=== PATIENT | male | born 1965 | race Caucasian/White ===

== ENCOUNTER 2017-12-20 | Emergency (ER) | payer OTHER | END 2017-12-20 18:02 | disposition home or self-care (01) ==

== ENCOUNTER 2018-02-24 15:08 | Day surgery (SDC) | payer OTHER ==
[2018-02-24] MEDS ORDERED: EPINEPHrine 1 MG/ML INJ ONE (15:17)
[2018-02-24] MEDS ORDERED: LIDO/EPI 2% **for epidural** 20 ML SDV ONE (15:17)
[2018-02-24] MEDS ORDERED: BUPIVACAINE 0.25% 30 ML SDV ONE (15:17)
[2018-02-24] MEDS ORDERED: CHLORHEXIDINE GLUCONATE 15 ML UDL ONE (15:17)
[2018-02-24] MEDS ORDERED: ceFAZolin 2 GM/DEXTROSE 100 ML IV ONE (15:19)
[2018-02-24] MEDS ORDERED: DEXAMETHASONE 4 MG/ML VIAL IVP ONE (15:19)
[2018-02-24] MEDS ORDERED: LR 1,000 ML IV ONE (15:20)
[2018-02-24] MEDS ORDERED: MIDAZOLAM 2 MG/2 ML VIAL IVP ONE (16:13)
--- NOTE | 2018-02-24 16:17 | PDANEPAE ---
ANE Past Medical History - Cardiovascular History Hx Hypertension: No Hx Arrhythmias: No Hx Chest Pain: No Hx Coronary Artery / Peripheral Vascular Disease: No Hx CHF / Valvular Disease: No Hx Palpitations: No - Pulmonary History Hx COPD: No Hx Asthma/Reactive Airway Disease: No Hx Recent Upper Respiratory Infection: No Hx Oxygen in Use at Home: No Hx Sleep Apnea: No Sleep Apnea Screening Result - Last Documented: Negative - Neurologic History Hx Cerebrovascular Accident: No Hx Seizures: No Hx Dementia: No - Endocrine History Hx Diabetes: No Obesity: no - Renal History Hx Renal Disorders: No - Liver History Hx Hepatic Disorders: No - Neurological & Psychiatric Hx Hx Neurological and Psychiatric Disorders: No - Cancer History Hx Cancer: No - Congenital Disorder History Hx Congenital Disorders: No - GI History GERD: no Hx Gastrointestinal Disorders: No - Other Health History Other Health History: scleritis. rosacea. left foot cellulitis - Chronic Pain History Chronic Pain: No - Surgical History Prior Surgeries: dental surgery. colonoscopy ANE Review of Systems Review of Systems: - Exercise capacity METS (RN): 4 METS ANE Patient History - Allergies Allergies/Adverse Reactions: gluten Allergy (Verified 02/16/18 11:29) GI Symptoms, keeps slceritis from flairing when without vancomycin Allergy (Verified 02/16/18 11:28) Red Man Syndrome - Home Medications Home medications: home medication list seen and reviewed Home Medications: Fish Oil 1000 mg (*) 12/20/17 [Last Taken 02/17/18] Multivitamin (*) 12/20/17 [Last Taken 02/17/18] - NPO status NPO Status: no food or drink >8 hours NPO Since - Liquids (Date): 02/24/18 NPO Since - Liquids (Time): 13:30 NPO Since - Solids (Date): 02/24/18 NPO Since - Solids (Time): 07:30 - Anes Hx Anes Hx: no prior problems - Smoking Hx Smoking Status: Former smoker - Family Anes Hx Family Hx Anesthesia Complications: none ANE Labs/Vital Signs - Vital Signs Blood Pressure: 148/104 Heart Rate: 69 Respiratory Rate: 18 O2 Sat (%): 96 Height: 177.8 cm Weight: 83.915 kg ANE Physical Exam - Airway Neck exam: FROM Mallampati Score: Class 1 Mouth exam: normal dental/mouth exam - Pulmonary Pulmonary: no respiratory distress, no rales or rhonchi, clear to auscultation - Cardiovascular Cardiovascular: regular rate and rhythym, no murmur, rub, or gallop - ASA Status ASA Status: I ANE Anesthesia Plan Anesthesia Plan: general endotracheal anesthesia
--- NOTE | 2018-02-24 16:25 | PDHPUP ---
History & Physical Update H&P update statement: This history and physical update is based on an assessment of the patient which was completed after admission or registration (within 24 hours), but prior to the surgery/procedure. H&P update: H&P reviewed & patient examined, no change in patient's condition since H&P completed
[2018-02-24] MEDS ORDERED: ONDANSETRON 4 MG/2 ML VIAL IVP PRN (16:32)
[2018-02-24] MEDS ORDERED: NALOXONE HCL 0.4 MG/ML INJ IVP PRN (16:32)
[2018-02-24] MEDS ORDERED: oxyCODONE IR 5 MG TAB PO PRN (16:32)
[2018-02-24] MEDS ORDERED: HYDROCODONE/APAP 5/325 TAB PO PRN (16:32)
[2018-02-24] MEDS ORDERED: fentaNYL 100 MCG/2 ML INJ ONE (16:32)
[2018-02-24] MEDS ORDERED: PROMETHAZINE HCL 25 MG/ML INJ IVP PRN (16:32)
[2018-02-24] MEDS ORDERED: LR 500 ML IV PRN (16:32)
[2018-02-24] MEDS ORDERED: PROPOFOL 200 MG/20 ML VIAL ONE (16:32)
[2018-02-24] MEDS ORDERED: fentaNYL 100 MCG/2 ML INJ IVP PRN (16:32)
[2018-02-24] MEDS ORDERED: ACETAMINOPHEN 500 MG TAB PO PRN (16:32)
[2018-02-24] MEDS ORDERED: ONDANSETRON 4 MG/2 ML VIAL ONE (16:33)
[2018-02-24] MEDS ORDERED: DEXAMETHASONE 4 MG/ML VIAL ONE ×2 (16:33)
[2018-02-24] MEDS ORDERED: SUCCINYLCHOLINE CHLORIDE 200 MG/10 ML SYR IVP ONE (16:33)
[2018-02-24] MEDS ORDERED: CHLORHEXIDINE GLUC HIBICLENS 118 ML BTL TP ONE (16:54)
--- NOTE | 2018-02-24 17:34 | POSTOPPROG ---
Post Op Note Date of Operation: 02/24/18 Surgeon: Elizabeth Odom Anesthesia: GET(General Endotracheal) Pre-op Diagnosis: Nasopalatine Duct Cyst Post-op Diagnosis: anterior maxillary cyst Indication: cyst with bony destruction Procedure: Enucleation of maxillary cyst Inf/Abcess present in the surg proc area at time of surgery?: No Depth: Deep Incisional (Fascial) EBL: Minimal Total fluids administered: 500ml Crystalloid Complications: None Specimen(s): Anterior maxillary cyst
--- NOTE | 2018-02-24 17:40 | POSTANESTH ---
Post Anesthetic Evaluation Cardiovascular Status: Similar to Pre-Op Cond Respiratory Status: Normal, Stable, Similar to Pre-op Cond. Level of Consciousness/Mental Status: Can Participate in Eval, Alert and Oriented Pain Control: Adequate, Prn Tx Ordered Nausea/Vomiting Control: Adequate, Prn Tx Ordered Complications Possibly Related to Anesthesia: None Noted
[2018-02-24] MEDS ORDERED: LABETALOL HCL 5 MG/ML 20 ML MDV ONE (17:58)
[2018-02-24] MEDS: LABETALOL HCL 5 MG/ML 20 ML MDV IVP PRN ×2 (18:03→18:13)
[2018-02-24 19:20] VITALS: BP 137/98
--- NOTE | 2018-02-27 14:38 | SUROPNOTE ---
[facility] Operative Report - Surgery Name: Wilfred Yanes Date: February 24, 2018 Pre-operative diagnosis: Nasopalatine Duct Cyst Post-operative diagnosis: Nasopalatine duct cyst Procedure: Enucleation and curettage maxillary anterior cyst via intraoral approach Surgeon: Elizabeth Odom DDS Anesthesia: GETA with local anesthesia of Lidocaine 2% with 1:200k epi and Marcaine 0.25% with 1:100k epi local infiltration EBL: minimal - 20cc IVF: 500ml crystalloid Findings: Nasopalatine duct cyst with destruction of palatal bone Drains: None Specimens: Anterior maxillary cyst Complications: None Benefits, risks, and alternatives were explained to the patient who voiced understanding of the information. His questions were sought and answered. Patient agreed to proceed with the procedure as planned. Consents were signed and witnessed by OR staff and all sites marked. The patient was brought into operating room #1 by OR staff. Monitors were placed which were, but not limited to, a blood pressure cuff, pulse-oximeter, and EKG. Once monitors were noticed to be functioning normally, Anesthesia teamed began to induce anesthetics to the patient for intubation procedures. The patient was intubated orally and tube taped to left side. Eyes closed and taped. A time out was called and all teams were in agreement of patient and procedure. A throat pack was placed. Mouth was brushed and cleaned with Peridex. Local anesthesia of 2% Lidocaine with 1:200k epi was administered via maxillary anterior local infiltration. The patient was then prepped with chlorhexidine and draped in sterile fashion. A bite block was placed 15 blade used to make palatal sulcular incision. A #9 periosteal elevator was used to elevate the periosteum off the bone exposing maxillary anterior cyst. Curette used to enucleate cyst and bipolar used to remove cyst from nasopalatine canal via obliteration. Cyst sent for permanent specimen. Curette used to ensure all law clean of soft tissue. Irrigated surgical site well with NS. Primary closure of mucosa with 4-0 CG. Bite block removed, mouth cleaned with NS and throat pack removed with suction. Patients face was cleaned with wet and dry laps. Anesthesia Team proceeded to emerge the patient out of anesthesia. The patient was extubated in the operating room and taken to the PACU where the patient recovered uneventfully. Patient was given written and verbal post-op instructions and discharged to home appropriate antibiotics and pain medications. Patient was also given post- op follow up with at [facility] in 1 week. Elizabeth Odom DDS
== END 2018-02-24 19:17 | disposition home or self-care (01) ==
LOC: FSGY 15:08
PROVIDERS: ATTEND Dentist General Practice
PROC: 0NBR0ZZ Excision of Maxilla, Open Approach (ICD-10-PCS; principal; 2018-02-24 16:30)
DX: K09.1 Developmental (nonodontogenic) cysts of oral region (principal); I10 Essential (primary) hypertension; I45.10 Unspecified right bundle-branch block; I44.4 Left anterior fascicular block; E78.00 Pure hypercholesterolemia, unspecified
CPT/HCPCS: J0171; J0330; J0690; J1100; J2250; J2405; J2704; J3010